=== PATIENT | male | born 1995 | race Hispanic/Latino ===

== ENCOUNTER 2020-04-21 | Emergency (ER) | payer OTHER ==
--- NOTE | 2020-04-21 07:59 | ER ---
Nurse's Notes [facility] Name: Alexander Scanlon Age: 24 yrs Sex: Male : 1995 Arrival Date: 04/21/2020 Time: 05:49 Bed 16 Private MD: Diagnosis: Impacted cerumen, left ear;Possible tympanic membrane perforation Presentation: 04/21 06:06 Chief complaint: Patient states: I have pain in my left ear that has been there since jb4 last night. We used peroxide which helped a little and I tried to clean it with a Q-tip which did not help and I felt a pop. Coronavirus screen: Client denies travel out of the [place] in the last 14 days. At this time, the client does not indicate any symptoms associated with coronavirus-19. Ebola Screen: Patient negative for fever greater than or equal to 101.5 degrees Fahrenheit, and additional compatible Ebola Virus Disease symptoms. Initial Sepsis Screen: Does the patient meet any 2 criteria? No. Patient's initial sepsis screen is negative. Does the patient have a suspected source of infection? No. Patient's initial sepsis screen is negative. Risk Assessment: Do you want to hurt yourself or someone else? Patient reports no desire to harm self or others. Onset of symptoms was April 20, 2020. Transition of care: patient was not received from another setting of care. 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 - Social history:: Smoking status: Patient denies any tobacco usage or history of. Patient uses alcohol, weekly. Patient/guardian denies using street drugs. - Family history:: not pertinent. - Hospitalizations: : No recent hospitalization is reported. Screenin:12 Abuse screen: Denies threats or abuse. Nutritional screening: No deficits noted. jb4 Tuberculosis screening: No symptoms or risk factors identified. Fall Risk None identified. Assessment: 06:12 General: Appears in no apparent distress. uncomfortable, Behavior is calm, cooperative, jb4 appropriate for age. Pain: Complains of pain in left ear Pain does not radiate. Pain currently is 6 out of 10 on a pain scale. Neuro: Level of Consciousness is awake, alert, obeys commands, Oriented to person, place, time, situation. Cardiovascular: Patient's skin is warm and dry. Respiratory: Airway is patent Respiratory effort is even, unlabored, Respiratory pattern is regular, symmetrical. GI: No signs and/or symptoms were reported involving the gastrointestinal system. : No signs and/or symptoms were reported regarding the genitourinary system. EENT: Tympanic membrane not visualized left ear Ear canal clear on left ear. Derm: Skin is intact, Skin is pink, warm \T\ dry. Musculoskeletal: Circulation, motion, and sensation intact. Range of motion: intact in all extremities. 06:37 Reassessment: PT's mother reports that the patient is now reporting 10/10 pain, jb4 provider notified, no new orders at this time. 06:55 Reassessment: Patient appears in no apparent distress at this time. Patient and/or jb4 family updated on plan of care and expected duration. Pain level reassessed. Patient is alert, oriented x 3, equal unlabored respirations, skin warm/dry/pink. 08:07 Reassessment: Patient appears in no apparent distress at this time. Patient and/or tw2 family updated on plan of care and expected duration. Pain level reassessed. Patient is alert, oriented x 3, equal unlabored respirations, skin warm/dry/pink. provider at bedside with curette for LEFT ear pain. 08:14 Reassessment: Patient appears in no apparent distress at this time. Patient and/or tw2 family updated on plan of care and expected duration. Pain level reassessed. Patient is alert, oriented x 3, equal unlabored respirations, skin warm/dry/pink. Vital Signs: 06:06 BP 146 / 94; Pulse 85; Resp 16; Temp 98.0(O); Pulse Ox 100% on R/A; Weight 88.45 kg jb4 (R); Height 5 ft. 7 in. (170.18 cm) (R); Pain 6/10; 06:55 BP 143 / 94; Pulse 86; Resp 16; Pulse Ox 98% on R/A; jb4 08:03 BP 134 / 86; Pulse 76; Resp 17; Pulse Ox 99% on R/A; tw2 06:06 Body Mass Index 30.54 (88.45 kg, 170.18 cm) jb4 ED Course: 05:49 Patient arrived in ED. ag3 06:06 Britton Dunham, RN is Primary Nurse. jb4 06:10 Triage completed. jb4 06:12 Arm band placed on right wrist. jb4 06:12 Patient has correct armband on for positive identification. Bed in low position. Call jb4 light in reach. Side rails up X 1. Pulse ox on. NIBP on. 07:05 Charly Avina MD is Attending Physician. rn 08:14 No provider procedures requiring assistance completed. Patient did not have IV access tw2 during this emergency room visit. Administered Medications: No medications were administered Outcome: 07:58 Discharge ordered by MD. rn 08:14 Discharged to home ambulatory, with family. tw2 08:14 Condition: stable 08:14 Discharge instructions given to patient, family, Instructed on discharge instructions, follow up and referral plans. medication usage, Demonstrated understanding of instructions, follow-up care, medications, Prescriptions given X 1. 08:15 Patient left the ED. tw2 Signatures: Charly Avina MD MD rn Wise, Tara, RN RN tw2 Britton Dunham, RICHI RN 4 Danica Ellison ag3
--- NOTE | 2020-04-21 07:59 | EDPHYS ---
Physician Documentation [facility] Name: Alexander Scanlon Age: 24 yrs Sex: Male : 1995 Arrival Date: 04/21/2020 Time: 05:49 Bed 16 Private MD: ED Physician Charly Avina HPI: 04/21 07:35 This 24 yrs old Male presents to ER via Ambulatory with complaints of Ear Pain.rn 07:35 The patient presents with hearing loss, pain. The complaints affect the left ear. rn Onset: The symptoms/episode began/occurred last night. Modifying factors: The symptoms are alleviated by nothing, the symptoms are aggravated by nothing. Severity of symptoms: At their worst the symptoms were mild in the emergency department the symptoms are unchanged. The patient has not experienced similar symptoms in the past. Reports left ear pain, improved with hydrogen peroxide, reports decreased hearing left ear, no fever or drainage, no trauma. . 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 - Social history:: Smoking status: Patient denies any tobacco usage or history of. Patient uses alcohol, weekly. Patient/guardian denies using street drugs. - Family history:: not pertinent. - Hospitalizations: : No recent hospitalization is reported. ROS: 07:35 Constitutional: Negative for fever, chills, and weight loss, Eyes: Negative for injury, rn pain, redness, and discharge, ENT: + left ear pain and fullness Exam: 07:35 Constitutional: This is a well developed, well nourished patient who is awake, alert, rn and in no acute distress. Head/Face: Normocephalic, atraumatic. ENT: Left ear with cerumen impaction, + erythema of canal likely 2/2 hydrogen peroxide rinse, TM not visualized due to impaction, + mild irritation and blood on anterior canal near TM. a few air bubbles in fluid, dififcult to tell if TM perforation present. Vital Signs: 06:06 BP 146 / 94; Pulse 85; Resp 16; Temp 98.0(O); Pulse Ox 100% on R/A; Weight 88.45 kg jb4 (R); Height 5 ft. 7 in. (170.18 cm) (R); Pain 6/10; 06:55 BP 143 / 94; Pulse 86; Resp 16; Pulse Ox 98% on R/A; jb4 08:03 BP 134 / 86; Pulse 76; Resp 17; Pulse Ox 99% on R/A; tw2 06:06 Body Mass Index 30.54 (88.45 kg, 170.18 cm) jb4 MDM: 07:05 Patient medically screened. rn 07:35 Differential diagnosis: acute otalgia, cerumen impaction. Data reviewed: vital signs, rn nurses notes, and as a result, I will discharge patient. Counseling: I had a detailed discussion with the patient and/or guardian regarding: the historical points, exam findings, and any diagnostic results supporting the discharge/admit diagnosis, the need for outpatient follow up, to return to the emergency department if symptoms worsen or persist or if there are any questions or concerns that arise at home. Response to treatment: the patient's symptoms have mildly improved after treatment, and as a result, I will discharge patient. Special discussion: I discussed with the patient/guardian in detail that at this point there is no indication for admission to the hospital. It is understood, however, that if the symptoms persist or worsen the patient needs to return immediately for re-evaluation. Based on the history and exam findings, there is no indication for further emergent testing or inpatient evaluation. I discussed with the patient/guardian the need to see the ENT specialist for further evaluation of the symptoms. 08:08 ED course: Some hard wax removed with irrigation, reports hearing improved, re-exam rn shows yellow/pale liquid, TM still not visualized, attempted curette removal, not able to pull the liquid, hard wax removed with irrigation. Will dc home with ENT f/u, and abx, do not want to keep digging without visualization of TM.. 04/21 07:17 Order name: [facility] [place]. Order: Irrigate ear; Complete Time: 08:02 rn Administered Medications: No medications were administered Disposition: 04/21/20 07:58 Discharged to Home. Impression: Impacted cerumen, left ear, Possible tympanic membrane perforation. - Condition is Stable. - Discharge Instructions: Earwax Buildup, Adult, Eardrum Perforation, [id number]. - Prescriptions for Augmentin 875- 125 mg Oral Tablet - take 1 tablet by ORAL route every 12 hours for 10 days; 20 tablet. - Medication Reconciliation Form, Thank You Letter, Antibiotic Education, Prescription Opioid Use, Work release form form. - Follow up: Private Physician; When: As needed; Reason: Recheck today's complaints, Re-evaluation by your physician. - Problem is new. - Symptoms have improved. Signatures: Charly Avina MD MD rn Crowell, Minerva RN RN tw2 Britton Dunham RN RN jb4 Corrections: (The following items were deleted from the chart) 08:08 07:35 Constitutional: This is a well developed, well nourished patient who is awake, rn alert, and in no acute distress. Head/Face: Normocephalic, atraumatic. ENT: Left ear with cerumen impaction, + erythema of canal likely 2/2 hydrogen peroxide rinse, TM not visualized due to impaction rn 08:12 07:58 04/21/2020 07:58 Discharged to Home. Impression: Impacted cerumen, left ear. rn Condition is Stable. Forms are Work release form, Medication Reconciliation Form, Thank You Letter, Antibiotic Education, Prescription Opioid Use. Follow up: Private Physician; When: As needed; Reason: Recheck today's complaints, Re-evaluation by your physician. Problem is new. Symptoms have improved. rn 08:15 08:12 04/21/2020 07:58 Discharged to Home. Impression: Impacted cerumen, left ear; tw2 Possible tympanic membrane perforation. Condition is Stable. Discharge Instructions: Earwax Buildup, Adult. Forms are Work release form, Medication Reconciliation Form, Thank You Letter, Antibiotic Education, Prescription Opioid Use. Follow up: Private Physician; When: As needed; Reason: Recheck today's complaints, Re-evaluation by your physician. Problem is new. Symptoms have improved. rn
== END 2020-04-21 08:15 | disposition home or self-care (01) ==
DX: H61.22 Impacted cerumen, left ear (principal)
CPT/HCPCS: 99283

== ENCOUNTER 2024-01-13 20:54 | Emergency (ER) | payer BC, OTHER ==
--- NOTE | 2024-01-13 22:25 | ER ---
Nurse's Notes [facility] Name: Alexander Scanlon Age: 28 yrs Sex: Male : 1995 Arrival Date: 01/13/2024 Time: 20:54 Bed Waiting Private MD: Diagnosis: Assessment: 01/12 21:48 Reassessment: called for patient to triage, no response. tm6 22:10 Reassessment: called for patient to triage, no response. tm6 ED Course: 20:59 Patient arrived in ED. ra3 21:04 Breezy Fu PA is PHCP. cp 21:04 Shun Quintana MD is Attending Physician. cp Administered Medications: No medications were administered Outcome: 22:24 Eloped from waiting room, vc1 22:24 Condition: good 22:25 Patient left the ED. vc1 Signatures: Breezy Fu PA PA cp Calcote, Vanessa, RN RN vc1 Ramon Dejesus RN RN 6 Michelle Palafox ra3
== END 2024-01-13 22:25 | disposition left against medical advice (07) ==
LOC: ER 20:54
DX: Z02.9 Encounter for administrative examinations, unspecified (principal)